=== PATIENT | female | born 1985 | race Native Hawaiian/Other Pacific Islander ===

== ENCOUNTER 2022-01-16 09:46 | Day surgery (SDC) | payer BC ==
[~2022-01-16 09:46] MED LIST: SODIUM CHLORIDE 0.9% 1000 ML 1,000 ML IV SCH
[2022-01-16] MEDS ORDERED: propofoL 200 MG/20 ML VIAL IV ONE ×2 (11:07)
[2022-01-16] MEDS ORDERED: fentaNYL 100 MCG/2 ML INJ ONE (11:08)
[2022-01-16] MEDS ORDERED: ONDANSETRON 4 MG/2 ML INJ ONE (11:08)
[2022-01-16] MEDS ORDERED: LIDOCAINE MPF (2%) 20 MG/1 ML VIAL 5 ML ONE (11:08)
--- NOTE | 2022-01-16 11:12 | Anesthesia Consultation ---
Anesthesia Consult and Med Hx Date of service: 01/16/22 - Airway Anesthetic Teeth Evaluation: Good ROM Head & Neck: Adequate Mental/Hyoid Distance: Adequate Mallampati Class: Class II Intubation Access Assessment: Probably Good - Pre-Operative Health Status ASA Pre-Surgery Classification: ASA3 Proposed Anesthetic Plan: MAC - Pulmonary Hx Smoking: Yes (ocassional smoking) Hx Respiratory Symptoms: No - Cardiovascular System Hx Hypertension: No (has had high readings in the past but no diagnosis or rx) - Central Nervous System CVA: No - Endocrine Hx Renal Disease: No Hx Liver Disease: No Hx Insulin Dependent Diabetes: No Hx Non-Insulin Dependent Diabetes: No Hx Thyroid Disease: No - Other Systems Hx Obesity: Yes (BMI 49)
--- NOTE | 2022-01-16 11:12 | Anesthesia Day of Surgery ---
Anesthesia Day of Surgery - Day of Surgery Patient Examined: Yes Patient H&P Reviewed: Yes Patient is NPO: Yes
[2022-01-16] MEDS ORDERED: KETAMINE/STERILE WATER 50 MG/ML SYRINGE ONE (11:18)
--- NOTE | 2022-01-16 12:01 | Procedure Note ---
Date of procedure: 01/16/22 Pre-op diagnosis: Epigastric and left, lower Quadrant Abdominal Pain/ Diarrhea/ R/O Colitis Post-op diagnosis: other (Mild to Moderate, Erosive Esophagitis/ R/O Eosinophilic Esophagitis/ No Peptic Ulcer disease noted/ Gastric Erosion and gastritis/ R/O Microscopic Colitis/ R/O Ileitis/ Minor,Internal Hemorrhoids) Procedure: EGD with biopsy/ Colonoscopy with Biopsy Anesthesia: [facility] [place] Surgeon: NAZANIN ROTHMAN Estimated blood loss: minimal Pathology: list Specimen disposition: to lab Condition: stable Disposition: same day (Treat with PPI,prn Bentyl,OTC Probiotic and OTC antidiarrhea medication, avoid aspirin and NSAID for 5 days, otherwise resume previous medication and F/U in 1 to 2 weeks ([phone]).)
--- NOTE | 2022-01-16 12:03 | Operative Report ---
DATE OF SURGERY: 01/16/2022 PROCEDURE PERFORMED: EGD with biopsy. INDICATIONS: This is a 36-year-old slightly obese female who has been having some epigastric pain, some left lower quadrant pain that prompted her to go to the emergency room. She also gives a family history of cancer; the patient's mother had cervical cancer. EGD was done to make sure there was not any significant upper GI pathology present. DESCRIPTION OF PROCEDURE: Procedure was done after getting informed consent with MAC anesthesia. The instrument was passed through the hypopharynx into the esophagus, which showed [id number] erosive esophagitis. Photodocumentation and biopsy was done from the distal esophagus to assess for the severity of the erosive esophagitis. Biopsy was also done from the midesophagus to rule out for eosinophilic esophagitis. The stomach showed antral erosion and gastritis. Biopsy was done from the gastric antrum, gastric body and angular incisura to rule out for H. pylori and atrophic gastritis. The pylorus was patent. The duodenum in the first and second portion appeared normal. There was no duodenal ulcer or gastric ulcer noted. There was minimal bleeding associated with the procedure. No complications associated with the procedure. ASSESSMENT: Epigastric pain, no peptic ulcer disease noted, [id number]-[id number]-auctyleg erosive esophagitis, rule out eosinophilic esophagitis, gastritis, gastric erosion. PLAN: To treat the patient with PPI with p.r.n. dose of Bentyl. Encouraged the patient to take probiotics. Have the patient avoid aspirin and aspirin-related products for the next few days. A colonoscopy will also be done for further assessment because of the lower abdominal pain, possible colitis and changes in bowel habits. The procedure was done in the GI lab with assistance of the GI lab team, which included the GI nurse, the crop and soil technician and with assistance of anesthesia. TID: [id number] RECEIPT: [id number] RADHA/PRANAV
--- NOTE | 2022-01-16 12:30 | Operative Report ---
DATE OF SURGERY: 01/16/2022 PROCEDURE PERFORMED: Colonoscopy with biopsy. INDICATIONS: A 36-year-old obese female who had an EGD done to rule out for possible peptic ulcer disease because of epigastric pain. No peptic ulcer disease was noted. The patient was noted to have some xeyp-[id number]-iuhljcss erosive esophagitis as well as some gastric erosion and gastritis, most pronounced in the antrum. Colonoscopy was done to make sure there was not any significant lower GI pathology present. DESCRIPTION OF PROCEDURE: Procedure was done after getting informed consent with MAC anesthesia. Initial rectal examination was unremarkable. The instrument was passed through the rectum onto the cecum, which was identified by the ileocecal valve and appendiceal orifice. The terminal ileum was intubated, showed normal mucosa. Biopsy was done to rule out for possible ileitis. Cecum, ascending colon, transverse colon, descending colon, and sigmoid likewise showed normal mucosa. Random biopsies were done to rule out for possible microscopic colitis with minimal bleeding. There was no diverticular disease noted. No colon polyps noted and the rectum showed some minor internal hemorrhoid on the retroverted view. ASSESSMENT: Left quadrant pain and loose stools. Family history of cancer, namely cervical cancer of the patient's mother. The patient had normal colon mucosa. Biopsy was done to rule out for possible ileitis, rule out microscopic colitis. There was some minor internal hemorrhoid noted. No colon polyps or diverticular disease noted. PLAN: The patient will be placed empirically on dicyclomine as well as probiotics and treated with PPI because of the EGD findings of esophagitis and gastritis. Also asked to take arbx-cum-ghkhdnb medication for diarrhea as needed. Avoid aspirin and aspirin-related products for the next 5 days, otherwise resume home medication and follow up in the office in 1-2 weeks' time. Procedure was done in the GI lab with the GI lab team, which included the GI nurse, the ep tech and with assistance of anesthesia. TID: [id number] RECEIPT: [id number] RADHA/MAURISIO/JORGE L
[2022-01-16 13:53] VITALS: BP 143/90
--- NOTE | 2022-01-16 14:38 | Post Anesthesia Evaluation ---
- Post Anesthesia Evaluation Patient Participated: Yes Airway Patent: Yes Stable Respiratory Function: Yes Nausea/Vomiting: No Temp > 96.8F: Yes Pain Manageable: Yes Adequeate Hydration: Yes Anesthesia Complications: No
== END 2022-01-16 12:50 | disposition home or self-care (01) ==
LOC: GIO 09:46
DX: R10.32 Left lower quadrant pain (principal); R10.13 Epigastric pain; K29.70 Gastritis, unspecified, without bleeding; K63.89 Other specified diseases of intestine; K64.8 Other hemorrhoids; E66.9 Obesity, unspecified; F17.210 Nicotine dependence, cigarettes, uncomplicated; K20.90 Esophagitis, unspecified without bleeding; Z80.8 Family history of malignant neoplasm of other organs or systems; Z79.899 Other long term (current) drug therapy; Z68.42 Body mass index [BMI] 45.0-49.9, adult
CPT/HCPCS: 43239; 45380; 81025; 88305; 88342; J2405; J2704; J3010; J3490; J7030; J7120; Q0162